=== PATIENT | female | born 1995 | race African-American/Black ===

== ENCOUNTER 2019-05-06 23:19 | Emergency (ER) | payer MEDICAID, OTHER ==
[~2019-05-06] VITALS: Ht 149.9 cm; Wt 47.0 kg
[2019-05-07] MEDS ORDERED: IBUPROFEN 600MG TABLET PO STA (01:38)
[2019-05-07] MEDS ORDERED: TETANUS, DIPHTHERIA, PERTUSSIS VAC/PF 0.5ML (>7YR OLD) IM ONE (01:45)
[2019-05-07] MEDS ORDERED: SULFAMETHOXAZOLE/TRIMETHOPRIM 800/160MG TABLET PO ONE (01:45)
[2019-05-07 02:36] VITALS: BP 109/54
== END 2019-05-07 02:49 | disposition home or self-care (01) ==
LOC: ER 23:19
DX: S01.452A Open bite of left cheek and temporomandibular area, initial encounter (principal); Y04.1XXA Assault by human bite, initial encounter; Y93.89 Activity, other specified; Y92.89 Other specified places as the place of occurrence of the external cause; M79.642 Pain in left hand; Z23 Encounter for immunization; R03.0 Elevated blood-pressure reading, without diagnosis of hypertension
CPT/HCPCS: 81025; 90471; 90715; 99283